=== PATIENT | male | born 1975 | race Caucasian/White ===

== ENCOUNTER 2020-11-04 08:24 | Outpatient (REF) | payer OTHER, SELFPAY | END 2020-11-04 08:25 | disposition home or self-care (01) | LOC: HO.HMGCLDS 08:24 | PROVIDERS: Visit Provider Internal Medicine | DX: Z20.822 Contact with and (suspected) exposure to COVID-19 (principal) | CPT/HCPCS: C9803; U0003; U0005 ==

== ENCOUNTER 2022-12-26 07:17 | Outpatient (REF) | payer OTHER, SELFPAY ==
[2022-12-26 11:11] LABS: MANUAL DIFF FLAG NO
[2022-12-26 11:20] LABS: Basophils Percent Auto 0.4 % (0-2); Eosinophils Absolute Auto 0.1 X10*3/uL (0.0-0.4); Eosinophils Percent Auto 1.2 % (0-4); Hematocrit 45.5 % (42.0-52.0); Hemoglobin 15.3 g/dl (14.0-18.0); Imm Gran Abs Auto 0.02 X10*3/uL (0.00-0.03); Imm Gran Pct Auto 0.4 % (0.0-0.4); Lymphocytes Absolute Auto 1.3 X10*3/uL (1.2-4.9); Lymphocytes Percent Auto 25.6 % (20-40); Mean Corpuscular HGB Conc 33.6 g/dl (31.0-36.0); Mean Corpuscular Hemoglobin 31.8 pg (27.0-33.0); Mean Corpuscular Volume 94.6 fL (80.0-98.0); Mean Platelet Volume 10.2 fL (9.4-12.4); Monocytes Absolute Auto 0.5 X10*3/uL (0.1-1.2); Neutrophils Absolute Auto 3.1 x10*3/uL (2.0-8.3); Neutrophils Percent Auto 62.4 % (45-73); Platelet Count 204 X10*3/uL (160-400); Red Blood Count 4.81 X10*6/uL (4.60-5.80)
[2022-12-26 11:23] LABS: Appearance Urine Clear; Color Urine Yellow; Glucose Urine UA Negative (Negative); Leukocyte Esterase Urine Negative (Negative); Nitrite Urine Negative (Negative); PH 6.5 (5.0-9.0); Specific Gravity - Urine 1.025 (1.005-1.025); Urine Blood Negative (Negative); Urine Ketones Negative (Negative); Urine Protein Negative (Neg-Trace)
[2022-12-26 11:48] LABS: Alanine Aminotransferase 16 U/L (0-40); Albumin Level 4.2 g/dL (3.5-5.0); Alkaline Phosphatase 74 U/L (39-117); Anion Gap 12 (12-20); Aspartate Amino Transferase 24 U/L (5-37); Bilirubin Total 1.2 mg/dL (0.0-1.0); Blood Urea Nitrogen 20 mg/dL (9-16); Calcium 9.5 mg/dL (8.4-10.2); Carbon Dioxide 25 mmol/L (22-29); Chloride 108 mmol/L (96-108); Cholesterol 175 mg/dL; Estimated Glomerular Filt Rate > 60; Glucose Fasting 87 mg/dL (60-99); HDL Cholesterol 46 mg/dL; LDL Cholesterol Calculated 115 mg/dl; Potassium 4.4 mmol/L (3.3-5.1); Sodium 141 mmol/L (135-145); Total Protein 6.8 g/dL (6.5-8.0); Triglycerides 70 mg/dL
[2022-12-26 12:06] LABS: Prostate Specific Antigen Scr 0.39 ng/mL (<0.05-4.0); TSH reflex Free T4 1.81 uIU/mL (0.32-4.0)
== END 2022-12-26 07:18 | disposition home or self-care (01) ==
LOC: HO.HMGCLDS 07:17
PROVIDERS: PCP Nurse Practitioner Family; Visit Provider Nurse Practitioner Family
DX: Z00.00 Encounter for general adult medical examination without abnormal findings (principal); Z12.5 Encounter for screening for malignant neoplasm of prostate
CPT/HCPCS: 36415; 80053; 80061; 81003; 84153; 84443; 85025

== ENCOUNTER → 2023-01-15 14:53 | Outpatient (BNVA) | payer OTHER, SELFPAY | PROVIDERS: PCP Nurse Practitioner Family; Visit Provider Nurse Practitioner | DX: Z01.818 Encounter for other preprocedural examination (principal) | CPT/HCPCS: 99202 ==

== ENCOUNTER 2023-12-23 14:52 | Outpatient (AMB) | payer OTHER, SELFPAY ==
--- NOTE | 2023-12-23 14:55 | A.OFFPC_ITS ---
Vital Signs 12/23/23 14:58 Height 5 ft 10 in Weight 181 lb BMI 26.0 BP 128/82 Blood Pressure Location Lt brachial Position Sitting Pulse 61 Pulse Source Pulse Oximeter Pulse Oximetry (%) 98 Oxygen Delivery Method Room Air Intake Visit Reasons: Physical exam Intake Note: pt is here today for annual PE. Scheduled for colonoscopy 01/13/24. Has surgeries coming up for glaucoma. Allergies No Known Allergies Allergy (Verified 12/23/23 15:21) Medication List - Last Reconciled 12/23/23 by FELICIA Bryan peg 3350-electrolytes 236-22.74-6.74 -5.86 gram (Golytely) 240 mL PO Q10M 1 day Tobacco use date assessed: 12/23/23 Dental Screening Dental Screen Date: 12/23/23 Did you have a dental visit in the last 12 months?: Yes Did you have a dental problem in the last 6 months where you did not have access to dental care?: No Was dental information given to patient?: Patient has dentist HPI HPI Comments History of Present Illness Details Patient is a 48-year-old male in for physical exam 1 meeting for the 1st time. Will draw full panel fasting labs including PSA. Patient has upcoming appointment for colonoscopy. Patient will opt for TD booster at local pharmacy. Patient will fill out healthcare proxy form at appointment today. [facility] Surgical History No pertinent past surgical history Family History Mother Ovarian cancer Breast cancer Father Prostate cancer Social History Housing: House Patient Tobacco Use Status: Former Tobacco user e-Cigarette/Vaping Use: Never Used service: Yes Current occupational status: employed Current occupational exposures/hazards: Yes Cognitive needs: No Hearing needs: No Vision needs: No Questionnaire PHQ-9 Over the last 2 weeks, how often have you been bothered by any of the following problems? 1. Little interest or pleasure in doing things: not at all 2. Feeling down, depressed, or hopeless: not at all 3. Trouble falling or staying asleep, or sleeping too much: not at all 4. Feeling tired or having little energy: not at all 5. Poor appetite or overeating: not at all 6. Feeling bad about yourself - or that you are a failure or have let yourself or your family down: not at all 7. Trouble concentrating on things, such as reading the newspaper or watching television: not at all 8. Moving or speaking so slowly that other people could have noticed. Or the opposite - being so fidgety or restless that you have been moving around a lot more than usual: not at all 9. Thoughts that you would be better off or of hurting yourself in some way: not at all Total score: 0 Depression Screening Interpretation: Negative Depression Screening Done: Yes 72732 - PHQ-9 Billing: Yes Source: Developed by Drs. Cayetano Tejada, Bre Browning, Reynaldo Saavedra and colleagues, with an educational anant from [employer]. Thrive Questionnaire Date Thrive assessed: 12/23/23 I am a: Patient What is your living situation today?: I have a steady place to live Within the past 12 months, did the food you bought not last and you didn't have the money to get more?: Never true Within the past 12 months, did you worry whether your food would run out before you got money to buy more?: Never true Do you have trouble paying for medicines?: No Do you have trouble getting transportation to medical appointments?: No Do you have trouble paying your heating and electricity bill?: No Do you have trouble taking care of your child, family member or friend?: No Do you have trouble with day-to-day activities such as bathing, preparing meals, shopping, managing finances, etc.?: No Are you currently unemployed and looking for a job?: No Are you interested in more education?: No Please select the resources that you would like help with: None Currently or been in a relationship where the following occur: no concerns reported THRIVE Score: 0 AUDIT C Alcohol Use Questionnaire (AUDIT-C) 1. How often do you have a drink containing alcohol?: Never 3. How often do you have six or more drinks on one occasion?: Never Total Score: 0 Score Reviewed/Action Taken: Yes DEON-7 AMB Questionnaire DEON-7 Feeling nervous, anxious, or on edge: 0 = Not at all Not being able to stop or control worryin = Not at all Worrying too much about different things: 0 = Not at all Trouble relaxin = Not at all Being so restless that it is hard to sit still: 0 = Not at all Becoming easily annoyed or irritable: 0 = Not at all Feeling afraid as if something awful might happen: 0 = Not at all Total DEON-7 score (0-4 normal; 5-9 mild; 10-14 moderate; 15-21 severe): 0 Source: Developed by Drs. Cayetano Tejada, Bre Browning, Reynaldo Saavedra and colleagues, with an educational anant from [employer]. DEON-7 Assessment Billing DEON-7 Assessment Tool: DEON-7 Assessment 80131 Review of Systems Const All systems reviewed & are unremarkable except as noted in HPI and below Physical exam (Primary Care) Vital Signs: Last Vital Signs Pulse 61 12/23/23 14:58 BP 128/82 12/23/23 14:58 Pulse Ox 98 12/23/23 14:58 Oxygen Delivery Method Room Air 12/23/23 14:58 Care Plan Goal for BP management: Blood pressure is controlled. BMI result Body Mass Index 26.0 Tobacco/Smoking Status: Tobacco use Status Tobacco use date assessed 12/23/23 12/23/23 15:06 Patient Tobacco Use Status Former Tobacco user 12/23/23 14:55 e-Cigarette/Vaping Use Never Used 12/23/23 14:55 PHQ-9: PHQ-9 Score PHQ-9: Total score 0 12/23/23 15:06 Depression Screening Interpretation: Negative Thrive Assessment: Date of Thrive Assessment Date Thrive assessed 12/23/23 12/23/23 15:06 Currently or been in a relationship where the following occur: no concerns reported Const Other: Appearance: Alert.? Oriented X3.? No acute distress.? Head: Normocephalic, atraumatic, no step-offs or deformities Eyes: Pupils equal, round and reactive to light.? ENT: Pharynx normal.? Neck: Normal inspection.? Neck supple.? CVS: Normal heart rate and rhythm.? Pulses normal.? Respiratory: No respiratory distress.? Breath sounds normal.? Abdomen: Soft and nontender.? Skin: Skin warm and dry.? Normal skin color.? Normal skin turgor.? Extremities: No lower extremity edema.? No calf ttp. 5/5 strength to bilateral upper and lower extremities Back: No midline tenderness, no C-spine tenderness, full range of motion, no CVA tenderness bilaterally Neuro: Oriented X 3.? No motor deficit.? No sensory deficit. CN 2-12 intact Assessment and Plan Assessment & Plan (1) Physical exam: Comment: Will draw fasting labs. Has upcoming colonoscopy. Will get TD booster at local pharmacy. Code(s): Z00.00 - Encounter for general adult medical examination without abnormal findings (2) Glaucoma: Comment: Patient has upcoming appointment with Ophthalmology. Code(s): H40.9 - Unspecified glaucoma Qualifiers: Glaucoma type: unspecified Laterality: bilateral Qualified Code(s): H40.9 - Unspecified glaucoma Plan: draw labs Plan Follow up in 8 months. Orders: Orders Complete Blood Count Auto Diff Today Z13.0 - Encounter for screening for diseases of the blood and blood-forming organs and certain disorders involving the immune mechanism Comprehensive Met. Panel Today Z91.89 - Other specified personal risk factors, not elsewhere classified PSA,Total (Free>4and<10) Today Z12.5 - Encounter for screening for malignant neoplasm of prostate Vitamin D 25-OH (D2 and D3) Today Z13.21 - Encounter for screening for nutritional disorder Vitamin B6 Today Z13.21 - Encounter for screening for nutritional disorder Vitamin B12 Today Z13.21 - Encounter for screening for nutritional disorder UA CC w/rflx Micro + Cult Today Z13.89 - Encounter for screening for other disorder Lipid Panel Today Z13.220 - Encounter for screening for lipoid disorders TSH reflex Free T4 Today Z13.29 - Encounter for screening for other suspected endocrine disorder Coding Level of Care Code Est Pt Prev Care 40-64y(65113) Diagnoses Physical exam Z00.00 Glaucoma of both eyes, unspecified glaucoma type H40.9 Glaucoma type: unspecified Laterality: bilateral Additional Codes DEON-7 Assessment Billing - DEON-7 Assessment Tool: DEON-7 Assessment 41750 ([id number]) Time Spent (min) 26
[2023-12-23 14:58] VITALS: BP 128/82; PULSE 61; O2SAT 98; BMI 26.0
== END 2023-12-23 15:37 | disposition home or self-care (01) ==
PROVIDERS: PCP Internal Medicine; Visit Provider Nurse Practitioner Primary Care
DX: Z00.00 Encounter for general adult medical examination without abnormal findings (principal); H40.9 Unspecified glaucoma
CPT/HCPCS: 99396

== ENCOUNTER 2023-12-24 07:02 | Outpatient (REF) | payer OTHER, SELFPAY ==
[2023-12-24 10:33] LABS: Appearance Urine Clear; Color Urine Yellow; Glucose Urine UA Negative (Negative); Leukocyte Esterase Urine Negative (Negative); Nitrite Urine Negative (Negative); PH 6.5 (5.0-9.0); Specific Gravity - Urine 1.025 (1.005-1.025); Urine Blood Negative (Negative); Urine Ketones Negative (Negative); Urine Protein Negative (Neg-Trace)
[2023-12-24 10:34] LABS: MANUAL DIFF FLAG NO
[2023-12-24 10:49] LABS: Basophils Percent Auto 0.5 % (0-2); Eosinophils Absolute Auto 0.1 X10*3/uL (0.0-0.4); Eosinophils Percent Auto 1.1 % (0-4); Hematocrit 45.3 % (42.0-52.0); Hemoglobin 15.8 g/dl (14.0-18.0); Imm Gran Abs Auto 0.01 X10*3/uL (0.00-0.03); Imm Gran Pct Auto 0.2 % (0.0-0.4); Lymphocytes Absolute Auto 1.2 X10*3/uL (1.2-4.9); Lymphocytes Percent Auto 26.6 % (20-40); Mean Corpuscular HGB Conc 34.9 g/dl (31.0-36.0); Mean Corpuscular Hemoglobin 32.4 pg (27.0-33.0); Monocytes Absolute Auto 0.4 X10*3/uL (0.1-1.2); Monocytes Percent Auto 8.9 % (2-11); Neutrophils Absolute Auto 2.8 x10*3/uL (2.0-8.3); Neutrophils Percent Auto 62.7 % (45-73); Platelet Count 196 X10*3/uL (160-400); Red Blood Count 4.87 X10*6/uL (4.60-5.80); Red Cell Distribution Width 12.1 % (11.0-16.0); White Blood Count 4.4 X10*3/uL (4.8-10.8)
[2023-12-24 11:20] LABS: PSA,Total (Free>4and<10) 0.63 ng/mL (0.00-4.00)
[2023-12-24 11:32] LABS: Alanine Aminotransferase 13 U/L (0-40); Albumin Level 4.2 g/dL (3.5-5.0); Alkaline Phosphatase 68 U/L (39-117); Anion Gap 10 (12-20); Aspartate Amino Transferase 21 U/L (5-37); Bilirubin Total 0.8 mg/dL (0.0-1.0); Blood Urea Nitrogen 21 mg/dL (9-16); Calcium 9.1 mg/dL (8.4-10.2); Carbon Dioxide 25 mmol/L (22-29); Chloride 108 mmol/L (96-108); Cholesterol 200 mg/dL (<200); Estimated Glomerular Filt Rate > 60; Glucose Random 92 mg/dL (60-115); HDL Cholesterol 41 mg/dL (>40); LDL Cholesterol Calculated 132 mg/dL (<100); Potassium 4.4 mmol/L (3.3-5.1); Sodium 139 mmol/L (135-145); Total Protein 6.9 g/dL (6.5-8.0); Triglycerides 138 mg/dL (<150)
[2023-12-24 11:51] LABS: Vitamin B12 319 pg/mL (200-900)
[2023-12-29 16:28] LABS: Vitamin B6 8.7 ng/mL (2.1-21.7)
[2023-12-30 10:14] LABS: Vitamin D 25-OH, D2 <4 ng/mL; Vitamin D 25-OH, D3 23 ng/mL; Vitamin D 25-OH, Total 23 ng/mL (30-100)
== END 2023-12-24 07:03 | disposition home or self-care (01) ==
LOC: HO.HMGCLDS 07:02
PROVIDERS: PCP Nurse Practitioner Family; Visit Provider Nurse Practitioner Primary Care
DX: Z12.5 Encounter for screening for malignant neoplasm of prostate (principal); Z13.6 Encounter for screening for cardiovascular disorders; Z13.0 Encounter for screening for diseases of the blood and blood-forming organs and certain disorders involving the immune mechanism; Z13.21 Encounter for screening for nutritional disorder; Z13.29 Encounter for screening for other suspected endocrine disorder; Z13.89 Encounter for screening for other disorder; Z13.220 Encounter for screening for lipoid disorders; Z91.89 Other specified personal risk factors, not elsewhere classified
CPT/HCPCS: 36415; 80053; 80061; 81003; 82306; 82607; 84153; 84207; 84443; 85025

== ENCOUNTER 2024-01-13 12:50 | Day surgery (SDC) | payer OTHER, SELFPAY ==
[2023-08-22 10:54] VITALS: BMI 24.8
--- NOTE | 2024-01-09 13:38 | HO.ANESPROP2 ---
HPI - Anesthesia Eval Consult details Narrative: 48yo M for Colonoscopy PMFSH Active Problems Active Problems: All Active Problems Glaucoma (Acute) Pre-op examination (Acute) Physical exam (Acute) Screening for colon cancer (Acute) Family History Family History Mother Ovarian cancer Breast cancer Father Prostate cancer Surgical History Surgical History No pertinent past surgical history Social History Social History Housing: House Patient Tobacco Use Status: Former Tobacco user e-Cigarette/Vaping Use: Never Used service: Yes Current occupational status: employed Current occupational exposures/hazards: Yes Cognitive needs: No Hearing needs: No Vision needs: No Meds Allergies Allergy/AdvReac Type Severity Reaction Status Date / Time No Known Allergies Allergy Verified 12/23/23 15:21 Exam Height,Weight and Vital Signs: Height 5 ft 10 in Weight 78.471 kg Assessment and Plan Assessment Anesthesia Assessment: Chart Reviewed
[2024-01-13 13:08] VITALS: BP 136/92; PULSE 58; RESP 16; TEMP 36.6; O2SAT 97; BMI 25.9
--- NOTE | 2024-01-13 13:13 | MHC.SHP ---
Pre-Procedural Eval Section A - 24 Hr Update-Section A only Date of Service: 01/13/24 The patient is an INPATIENT: No The patient has been examined within 24 hours of the surgical procedure. The History & Physical has been completed within 30 days and I have reviewed it.: No Section B - Complete if H&P > 30 days Chief Complaint: Colon cancer screening Relevant Family History (Specify if Yes): No Relevant Social History: Tobacco Use (former smoker) Present Medications: see Short Stay Collaborative assessment Medical History: No relevant PMH History of Previous Operations: Relevant previous surgery/procedure and date(s) ([place] teeth removal - with gas) Allergies: Allergies Allergy/AdvReac Type Severity Reaction Status Date / Time No Known Allergies Allergy Verified 12/23/23 15:21 Review of Systems Sugical H&P ROS: Negative: Constitution, Cardiovascular, Respiratory and Gastrointestinal Exam Surgical H&P Exam: Normal: Heart, Normal: Lungs, Normal: Extremities and Normal: Abdomen Plan Diagnosis/Plan: Unchanged I have reviewed the history and physical and performed a pertinent physical examination on my patient. No changes have occurred unless specified. Time Spent With Patient Time: Total time managing care of this patient today ____ minutes.
[2024-01-13] MEDS: Lactated Ringers 1,000 ML 100 ML IVCONT (13:26)
--- NOTE | 2024-01-13 13:32 | HO.ANESPROP2 ---
PMF Active Problems Active Problems: All Active Problems Glaucoma (Acute) Pre-op examination (Acute) Physical exam (Acute) Screening for colon cancer (Acute) Past Medical History Functional capacity: independent ambulation Family History Family History Mother Ovarian cancer Breast cancer Father Prostate cancer Family history of problems with anesthesia: No Surgical History Surgical History No pertinent past surgical history History of Problems with Anesthesia: No Social History Social History Housing: House Patient Tobacco Use Status: Former Tobacco user e-Cigarette/Vaping Use: Never Used Use of substances other than those prescribed or required for medical reasons: No Are you DNR?: No Advance Directives: No Advance Directives Information Provided: Yes service: Yes Current occupational status: employed Current occupational exposures/hazards: Yes Cognitive needs: No Hearing needs: No Vision needs: No Meds Allergies Allergy/AdvReac Type Severity Reaction Status Date / Time No Known Allergies Allergy Verified 12/23/23 15:21 Active Medications: Current Medications Lactated Ringer's (Lr) 1,000 mls @ 100 mls/hr IVCONT .Q10H PETR Last Admin: 01/13/24 13:26 Dose: 100 mls/hr Exam Height,Weight and Vital Signs: Height 5 ft 10 in Weight 82.01 kg Last Vital Signs Temp 97.8 F 01/13/24 13:08 Pulse 58 01/13/24 13:08 Resp 16 01/13/24 13:08 BP 136/92 H 01/13/24 13:08 Pulse Ox 97 01/13/24 13:08 O2 Del Method Room Air 01/13/24 13:08 Airway Mallampati Class: II TM Dist: >3cm Neck ROM: Full Heart: RRR Lungs: CTA Assessment and Plan Assessment Anesthesia Assessment: Anesthesia Plan Discussed Final Anesthetic Review Family History of Problems with Anesthesia: No History of Problems with Anesthesia: No NPO: Yes ASA Class: II Final Preanesthetic Review: Meds/Allgs Chart Reviewed, Consent Obtained/Reviewed and Anes Risks/Benef Reviewed Patient Risk: Low Procedure Risk: Low Anesthetic Plan Anesthetic Plan: MAC: Disposition: Standard PACU
--- NOTE | 2024-01-13 14:42 | P.OPN-COLO_ITS ---
Colonoscopy Operative Note Operative Note Date of Service: 01/13/24 Narrative: COLONOSCOPY TILL CECUM WITH SNARE POLYPECTOMY, SUBMUCOSAL INJECTION AND HEMOCLIP PLACEMENT Pre-op diagnosis: Colon cancer screening (First colonoscopy). Post-op diagnosis:? Colon polyps, Diverticulosis, hemorrhoids Endoscopist:Khadar Parham MD Anesthesia:?MAC Consent: Indications for the procedure and potential complications of bleeding, perforation, reaction to medications and missed diagnosis were discussed with the patient and informed consent was obtained. Instrument: Olympus CF H 190 L variable stiffness adult colonoscope Monitoring: Vital signs and clinical assessment, intermittent blood pressure monitoring, continuous EKG monitoring, Pulse oximetry and Carbon Dioxide monitoring were done throughout the procedure. Please see anesthesia flowsheet. Colon withdrawl time was 25 minutes. Procedure: The patient was placed in the left lateral decubitis position and pre-procedure medications were administered. After a digital rectal examination of the ano-rectum, the video colonoscope was inserted into the rectum and advanced through the colon to the cecum. The colonoscope was slowly withdrawn in a retrograde panoramic fashion and the colon mucosa was carefully examined including a retroflexed view of the rectum. Findings and interventions are described below. Procedure Difficulty: without difficulty Findings: Terminal Ileum: Not evaluated Cecum: Normal Ascending Colon: A 2.5 x 2 cms flat polyp in the proximal AC at 75 cms. Polyp was raised with 4 cc of Eleview and removed with a stiff hot snare. Polypectomy site was closed with 2 hemoclips and marked with Valeria ink Transverse Colon: Normal Descending Colon: Moderate diverticulosis Sigmoid Colon: A 10-12 mm sessile polyp - removed with a stiff hot snare. Moderate diverticulosis Rectum: A 5-6 mm sessile polyp in the distal rectum - removed with a hot snare Ano-rectum: Small internal hemorrhoids Colon preparation: Excellent after some irrigation. [place] Bowel Preparation Scale Right colon; 3 Transverse colon: 3 Left colon; 3 (0 = Unprepared colon segment with mucosa not seen due to solid stool that cannot be cleared. 1 = Portion of mucosa of the colon segment seen, but other areas of the colon segment not well seen due to staining, residual stool and/or opaque liquid. 2 = Minor amount of residual staining, small fragments of stool and/or opaque liquid, but mucosa of colon segment seen well. 3 = Entire mucosa of colon segment seen well with no residual staining, small fragments of stool or opaque liquid) Impression and Post Procedure Diagnosis: Colonoscopy Findings: Two medium sized and one small polyps were removed A 2.5 x 2 cms flat polyp in the proximal AC at 75 cms. Polyp was raised with 4 cc of Eleview and removed with a stiff hot snare. Polypectomy site was closed with 2 hemoclips and marked with Valeria ink Moderate diverticulosis seen in the left colon Small hemorrhoids on retroflexed exam. Plan: Pt has a FU appointment on 02/04/24 with Yolie Duff NP Repeat Colonoscopy in 2 years if AC polyps is adenomatous to check polypectomy site and 10 year if polyps are hyperplastic. Above findings were reviewed with the patient and relevant handouts were given and the discharge area.
[2024-01-13 14:44] VITALS: BP 114/78; PULSE 57; RESP 16; TEMP 36.1; O2SAT 99
--- NOTE | 2024-01-13 14:51 | HO.POSTANES ---
Post Anesthesia Evaluation Post Anesthesia Evaluation Date of Service: 01/13/24 Vital Signs: Vital Signs Temp Pulse Resp BP Pulse Ox O2 Del Method 01/13/24 14:44 97 F 57 16 114/78 99 Room Air 01/13/24 13:08 97.8 F 58 16 136/92 H 97 Room Air Anesthesia: Monitored Mental Status: Awake Pain Control: Satisfactory Nausea/Vomiting: None Hydration: Adequate Anesthesia-Related Issues: No Anes. Related Issues
[2024-01-13 14:57] VITALS: BP 117/72; PULSE 48; RESP 16; TEMP 36.1; O2SAT 100
== END 2024-01-13 15:52 | disposition home or self-care (01) ==
PROVIDERS: PCP Internal Medicine; Visit Provider Internal Medicine Gastroenterology
PROC: 0DJD8ZZ Inspection of Lower Intestinal Tract, Via Natural or Artificial Opening Endoscopic (ICD-10-PCS; CPT 45378; principal; 2024-01-13 14:00)
DX: Z12.11 Encounter for screening for malignant neoplasm of colon (principal); D12.2 Benign neoplasm of ascending colon; D12.8 Benign neoplasm of rectum; K63.5 Polyp of colon; K57.30 Diverticulosis of large intestine without perforation or abscess without bleeding; K64.8 Other hemorrhoids; Z87.891 Personal history of nicotine dependence
CPT/HCPCS: 45385; 45381; 88305; J2704

== ENCOUNTER → 2024-01-13 12:50 | Outpatient (BNV) | payer OTHER, SELFPAY | PROVIDERS: PCP Internal Medicine; Visit Provider Internal Medicine Gastroenterology | DX: Z12.11 Encounter for screening for malignant neoplasm of colon (principal); Z86.010 Personal history of colon polyps; D12.8 Benign neoplasm of rectum; K63.5 Polyp of colon | CPT/HCPCS: 45381; 45385 ==

== ENCOUNTER 2024-05-25 13:12 | Outpatient (REF) | payer OTHER, SELFPAY ==
--- NOTE | ~2024-05-25 | XR_ITS ---
EXAMINATION: XR SHOULDER, LEFT CLINICAL INFORMATION: Left shoulder pain. COMPARISON: None available. TECHNIQUE: AP, Grashey, and scapular Y views of the left shoulder. FINDINGS: No acute fracture or dislocation. Mild joint space narrowing with small marginal osteophytes at the acromioclavicular and glenohumeral joints. No osseous erosion. No abnormal soft tissue calcification. XR/XR shoulder LT min 2V IMPRESSION: Mild acromioclavicular and glenohumeral osteoarthritis. Electronically signed by: Ellis Mcmahon MD 05/25/2024 04:01 PM LOREN SALINAS
== END 2024-05-25 13:13 | disposition home or self-care (01) ==
LOC: HO.HMGCX 13:12
PROVIDERS: PCP Nurse Practitioner Family; Visit Provider Physician Assistant
DX: M25.512 Pain in left shoulder (principal)
CPT/HCPCS: 73030; 99212

== ENCOUNTER 2024-05-25 13:12 | Outpatient (AMB) | payer OTHER, SELFPAY ==
[2024-05-25 13:20] VITALS: BP 120/74; PULSE 72; O2SAT 98; BMI 25.8
--- NOTE | 2024-05-25 13:20 | MHC.OFFWIV ---
Intake Vital Signs 05/25/24 13:20 Height 5 ft 10 in Weight 180 lb BMI 25.8 BP 120/74 Blood Pressure Location Rt brachial Position Sitting Pulse 72 Pulse Source Pulse Oximeter Pulse Oximetry (%) 98 Intake Visit Reasons: EP LT shoulder pain Intake Note: pt is here for left shoulder pain, denies injury but ongoing for 1 week Patient Tobacco Use Status: Former Tobacco user Allergies No Known Allergies Allergy (Verified 05/25/24 13:21) Do you need a note to return to daycare/school/sports/work: No HPI HPI Comments History of Present Illness Details Patient is a 49-year-old male complaining of left shoulder pain for the past week. He denies any injury to the left shoulder. He tells me he goes to the gym but does not lift heavy he has not tried any new exercises at the gym or done anything different from his normal routine. He has taken the last week off of the gym to try to rest it but it has not gotten better. He has been taking 400 mg of ibuprofen every 4 hours with no relief in his symptoms. He tells me it is painful in the front of his shoulder and around to the side of his shoulder and it feels heavy but he denies any feelings of muscle spasm or pain in his neck. He describes the pain as a sharp shooting pain when he moves a certain way. [facility] Surgical History No pertinent past surgical history Family History Mother Ovarian cancer Breast cancer Father Prostate cancer Social History Housing: House Patient Tobacco Use Status: Former Tobacco user e-Cigarette/Vaping Use: Never Used service: Yes Current occupational status: employed Current occupational exposures/hazards: Yes Cognitive needs: No Hearing needs: No Vision needs: No Review of Systems Const All systems reviewed & are unremarkable except as noted in HPI and below Physical Exam Vital Signs: Last Vital Signs Pulse 72 05/25/24 13:20 BP 120/74 05/25/24 13:20 Pulse Ox 98 05/25/24 13:20 BMI result Body Mass Index 25.8 Const General: cooperative, healthy appearing, comfortable and no acute distress Orientation/consciousness: patient oriented x3 Limitations: no limitations HEENT Head: Yes normal to inspection Resp Effort & Inspection: normal respiratory effort and able to speak in complete sentences Neuro General: patient oriented x3 Extrem Left upper extremity: shoulder/upper arm Details: inspection abnormal, tenderness Location: over the biceps tendon (insertion point) and abnormal ROM Details: pain with active ROM Details: in ABduction; but not in ADduction, but not in extension, but not in flexion, but not in internal rotation and external rotation-; no swelling, no lacerations, no ecchymosis, no foreign bodies, no penetrating wound, no deformity and no unsual warmth Assessment & Plan Assessment & Plan (1) Left shoulder pain: Code(s): M25.512 - Pain in left shoulder Qualifiers: Chronicity: acute Qualified Code(s): M25.512 - Pain in left shoulder Plan: We will treat with meloxicam, likely proxmial biceps tendonitis. Possible muscle spasm as well so I sent a few muscle relaxers. Will get x-ray and send ortho referral. Recommended patient cancel the appointment with ortho if his pain improves. Plan See above Orders: Orders XR shoulder LT min 2V Today M25.512 - Pain in left shoulder Referrals Orthopedics Referral M25.512 - Pain in left shoulder Medications: New meloxicam 15 mg PO DAILY 14 tabs 0RF cyclobenzaprine 5 mg PO Q8H PRN 10 tabs 0RF Muscle Spasm Coding Level of Care Code Est Pt Level 4 (01582) Diagnoses Acute pain of left shoulder M25.512 Chronicity: acute
== END 2024-05-25 14:07 | disposition home or self-care (01) ==
PROVIDERS: PCP Internal Medicine; Visit Provider Physician Assistant
DX: M25.512 Pain in left shoulder (principal)

== ENCOUNTER 2024-06-22 09:30 | Outpatient (AMB) | payer OTHER, SELFPAY ==
--- NOTE | 2024-06-22 09:32 | MHC.OFFVIS ---
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 Patient was seen at [facility] [place] [place] on 05/25/24 for ongoing pain for a week. He states having ongoing pain and popping for about a month. Denies injury. Patient states he was given a topical cream which gave him mild relief and his pain came back after a while. His pain is worse at night when laying down. 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 He has not had any shoulder injury in the past. He reports he was seen at walk-in clinic on 05/25/24 due to ongoing pain for a week. He currently states he has popping as well as pain in his left shoulder that is aggravated at night with laying down. He also experiences soreness in his shoulder after working out at gym. He was given a topical cream which provided him transient relief. 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 Current occupational exposures/hazards: Yes Cognitive needs: No Hearing needs: No Vision needs: No Review of Systems Const All systems reviewed & are unremarkable except as noted in HPI and below Physical Exam Const General: cooperative, healthy appearing, comfortable, no acute distress, well developed and alert Orientation/consciousness: patient oriented x3 HEENT Head: Yes normal to inspection, Yes normocephalic and Yes atraumatic Eyes General: appearance normal, both eyes and all related structures Resp Effort & Inspection: normal respiratory effort and able to speak in complete sentences Cardio Rate: regular rate Peripheral pulses: Peripheral pulses 2+ throughout GI Palpation (GI): Soft to palpation Skin Lesions: no lesions Rashes: no rashes Neuro General: patient oriented x3 Extrem Other: Left shoulder: Normal to inspection. Tenderness over the bicipital groove and along the deltoid region of the shoulder. Forward flexion to 175, external rotation to 90, internal rotation to S1. 5/5 RTC strength. Positive Roca and O?Briens. NVI. Results Reviewed Results Reviewed: XR shoulder LT min 2V IMPRESSION: Mild acromioclavicular and glenohumeral osteoarthritis. Assessment & Plan Assessment & Plan (1) Left shoulder tendonitis: Code(s): M77.8 - Other enthesopathies, not elsewhere classified Category: Medical Plan We discussed options which include PT, NSAIDs and injections. The patient will defer on the injection today and proceed with PT and NSAIDs. If symptoms persist, she will contact me for an injection, otherwise, PRN. Orders: Orders PT Evaluation and Treatment Today M77.8 - Other enthesopathies, not elsewhere classified Patient Instructions: Scribed for Karmen Waller PA-C, by Ace Mooney biomedical repair technician, on 06/22/2024 at 9:45 AM EST.? I, Karmen Waller PA-C, have personally reviewed and agree with the information entered by the scribe. Coding Level of Care Code New Pt Level 3 (54781) Complex EM visit Add On G2211 Diagnoses Left shoulder tendonitis M77.8
== END 2024-06-22 10:09 | disposition home or self-care (01) ==
PROVIDERS: PCP Nurse Practitioner Family; Visit Provider Physician Assistant
DX: M77.8 Other enthesopathies, not elsewhere classified (principal)
CPT/HCPCS: 99203

== ENCOUNTER → 2024-06-22 09:30 | Outpatient (BNVA) | payer OTHER, SELFPAY | PROVIDERS: PCP Nurse Practitioner Family; Visit Provider Physician Assistant | DX: M77.8 Other enthesopathies, not elsewhere classified (principal); M25.512 Pain in left shoulder | CPT/HCPCS: 99202 ==

== ENCOUNTER 2025-01-21 09:03 | Outpatient (AMB) | payer OTHER, SELFPAY ==
[2025-01-21 09:11] VITALS: BP 120/78; PULSE 55; O2SAT 98; BMI 26.0
--- NOTE | 2025-01-21 09:11 | A.OFFPC_ITS ---
Vital Signs 01/21/25 09:11 Height 5 ft 10 in Weight 181 lb BMI 26.0 BP 120/78 Blood Pressure Location Rt brachial Position Sitting Pulse 55 Pulse Source Pulse Oximeter Pulse Oximetry (%) 98 Oxygen Delivery Method Room Air Intake Visit Reasons: PE Development Analyst Required: No Accompanied by: Self / Same As Patient Allergies No Known Allergies Allergy (Verified 01/21/25 09:11) Tobacco use date assessed: 01/21/25 Dental Screening Dental Screen Date: 01/21/25 Did you have a dental visit in the last 12 months?: Yes Did you have a dental problem in the last 6 months where you did not have access to dental care?: No Was dental information given to patient?: Patient has dentist HPI PE HPI Details History of Present Illness The patient is a 49-year-old male presenting for a physical exam and preventative care measures. He is an avid runner, participating in events up to 100 miles, and reports doing well without any symptoms such as chest pain, dyspnea, abdominal pain, or gastrointestinal issues. He denies any suicidal or homicidal ideation. The patient has a history of smoking, having started at age 15 and continued for over 20 years at a minimum of one pack per day before quitting. Health Maintenance - Low dose CT scan for lung cancer scree ariane due to smoking history - Prostate-specific antigen (PSA) test f or prostate cancer screening - Colon cancer screening is up-to-date, with a repeat scheduled for next year Social History - Exercise: Avid runner, participates in events up to 100 miles - Tobacco use: Former smoker, started at age 15, smoked for over 20 years, quit thereafter Review of Systems - Cardiovascular: Denies chest pain - Respiratory: Denies dyspnea - Gastrointestinal: Denies abdominal noel n, blood in stool, constipation, diarrhea - Psychiatric: Denies suicidal ideation, homicidal ideation - Genitourinary: Denies urinary issues Physical Exam General: Cooperative, healthy appearing, comfortable, no acute distress and well developed Orientation: Patient oriented x3 Limitations: No limitations Head: Normal to inspection Ears: Hearing grossly normal bilaterally Nose: Normal external nose present Face and sinus: Normal facial exam Eyes: Appearance normal, both eyes and all related structures Neck: Normal visual inspection and Yes full ROM Respiratory: Normal respiratory effort and able to speak in complete sentences. Clear to auscultation bilaterally Cardiovascular: jackelyn. Normal S1 and S2 GI: Normal to inspection. Soft to palpation and nontender, small umbilical hernia : Testicles without masses/lesions and no hernias appreciated Skin: No rashes or lesions noted Neuro: Patient oriented x3 Extremities: Normal to inspection Results Plan The patient will be referred to a low dose CT scan program for lung cancer screening due to his significant smoking history. A prostate-specific antigen PSA test will be conducted to screen for prostate cancer. His colon cancer screening is current, with a follow-up scheduled for next year. Discussion Notes I discussed with the patient the importance of lung cancer screening given his past smoking history and recommended a low dose CT scan. We also talked about the need for a PSA test to monitor prostate health. I confirmed that his colon cancer screening is up-to-date and advised a repeat next year. Patient Instructions - Schedule a low dose CT scan for lung c ancer screening. - Complete a PSA test as part of prostat e health monitoring. - Follow up with colon cancer screening next year. 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 1. Little interest or pleasure in doing things: not at all 2. Feeling down, depressed, or hopeless: not at all 3. Trouble falling or staying asleep, or sleeping too much: not at all 4. Feeling tired or having little energy: not at all 5. Poor appetite or overeating: not at all 6. Feeling bad about yourself - or that you are a failure or have let yourself or your family down: not at all 7. Trouble concentrating on things, such as reading the newspaper or watching television: not at all 8. Moving or speaking so slowly that other people could have noticed. Or the opposite - being so fidgety or restless that you have been moving around a lot more than usual: not at all 9. Thoughts that you would be better off or of hurting yourself in some way: not at all Total score: 0 Depression Screening Interpretation: Negative Depression Screening Done: Yes 28377 - PHQ-9 Billing: Yes Source: Developed by Drs. Cayetano Tejada, Bre Browning, Reynaldo Saavedra and colleagues, with an educational anant from [employer]. Thrive Questionnaire Date Thrive assessed: 01/21/25 I am a: Patient What is your living situation today?: I have a steady place to live Within the past 12 months, did the food you bought not last and you didn't have the money to get more?: Never true Within the past 12 months, did you worry whether your food would run out before you got money to buy more?: Never true Do you have trouble paying for medicines?: No Do you have trouble getting transportation to medical appointments?: No Do you have trouble paying your heating and electricity bill?: No Do you have trouble taking care of your child, family member or friend?: No Do you have trouble with day-to-day activities such as bathing, preparing meals, shopping, managing finances, etc.?: No Are you currently unemployed and looking for a job?: No Are you interested in more education?: No Please select the resources that you would like help with: None Currently or been in a relationship where the following occur: No concerns reported THRIVE Score: 0 AUDIT C Alcohol Use Questionnaire (AUDIT-C) 1. How often do you have a drink containing alcohol?: Never 3. How often do you have six or more drinks on one occasion?: Never Total Score: 0 Score Reviewed/Action Taken: Yes DEON-7 AMB Questionnaire DEON-7 Date DEON - 7 assessed: 01/21/25 Feeling nervous, anxious, or on edge: 0 = Not at all Not being able to stop or control worryin = Not at all Worrying too much about different things: 0 = Not at all Trouble relaxin = Not at all Being so restless that it is hard to sit still: 0 = Not at all Becoming easily annoyed or irritable: 0 = Not at all Feeling afraid as if something awful might happen: 0 = Not at all Total DEON-7 score (0-4 normal; 5-9 mild; 10-14 moderate; 15-21 severe): 0 Source: Developed by Drs. Cayetano Tejada, Bre Browning, Reynaldo Saavedra and colleagues, with an educational anant from [employer]. DEON-7 Assessment Billing DEON-7 Assessment Tool: DEON-7 Assessment 99617 Physical exam (Primary Care) Vital Signs: Last Vital Signs Pulse 55 01/21/25 09:11 BP 120/78 01/21/25 09:11 Pulse Ox 98 01/21/25 09:11 Oxygen Delivery Method Room Air 01/21/25 09:11 BMI result Body Mass Index 26.0 Tobacco/Smoking Status: Tobacco use Status Tobacco use date assessed 01/21/25 01/21/25 09:14 Patient Tobacco Use Status Former Tobacco user 01/21/25 09:14 e-Cigarette/Vaping Use Never Used 01/21/25 09:14 PHQ-9: PHQ-9 Score PHQ-9: Total score 0 01/21/25 09:14 Depression Screening Interpretation: Negative Thrive Assessment: Date of Thrive Assessment Date Thrive assessed 01/21/25 01/21/25 09:14 Currently or been in a relationship where the following occur: No concerns reported Coding Level of Care Code Est Pt Prev Care 40-64y(48042) Diagnoses Physical exam Z00.00 Tick bite W57.XXXA Screening PSA (prostate specific antigen) Z12.5 Additional Codes DEON-7 Assessment Billing - DEON-7 Assessment Tool: DEON-7 Assessment 72195 ([id number]) PHQ-9 - 83992 - PHQ-9 Billing: Yes ([id number]) Assessment & Plan Assessment & Plan (1) Physical exam: Code(s): Z00.00 - Encounter for general adult medical examination without abnormal findings Category: Medical (2) Tick bite: Code(s): W57.XXXA - Bitten or stung by nonvenomous insect and other nonvenomous arthropods, initial encounter Category: Medical (3) Screening PSA (prostate specific antigen): Code(s): Z12.5 - Encounter for screening for malignant neoplasm of prostate Category: Medical Plan . Orders: Orders Comprehensive Gans. Panel Fast Today Z00.00 - Encounter for general adult medical examination without abnormal findings UA CC w/rflx Micro + Cult Today Z00.00 - Encounter for general adult medical examination without abnormal findings Lipid Panel Today Z00.00 - Encounter for general adult medical examination without abnormal findings Tick-borne Disease Molecular Today W57.XXXA - Bitten or stung by nonvenomous insect and other nonvenomous arthropods, initial encounter Complete Blood Count Auto Diff Today Z00.00 - Encounter for general adult medical examination without abnormal findings TSH reflex Free T4 Today Z00.00 - Encounter for general adult medical examination without abnormal findings Lyme IgG/IgM w/reflex to WB Today W57.XXXA - Bitten or stung by nonvenomous insect and other nonvenomous arthropods, initial encounter Prostate Specific Antigen Scr Today Z12.5 - Encounter for screening for malignant neoplasm of prostate
== END 2025-01-21 09:51 | disposition home or self-care (01) ==
LOC: HO.HMCC 09:04
PROVIDERS: PCP Internal Medicine; Visit Provider Nurse Practitioner Family
DX: Z00.00 Encounter for general adult medical examination without abnormal findings (principal); W57.XXXA Bitten or stung by nonvenomous insect and other nonvenomous arthropods, initial encounter; Z12.5 Encounter for screening for malignant neoplasm of prostate

== ENCOUNTER → 2025-01-21 09:03 | Outpatient (BNVA) | payer OTHER, SELFPAY | PROVIDERS: PCP Internal Medicine; Visit Provider Nurse Practitioner Family | DX: Z00.00 Encounter for general adult medical examination without abnormal findings (principal); T14.8XXA Other injury of unspecified body region, initial encounter; W57.XXXA Bitten or stung by nonvenomous insect and other nonvenomous arthropods, initial encounter; Y93.9 Activity, unspecified; Y92.9 Unspecified place or not applicable; Y99.9 Unspecified external cause status; Z87.891 Personal history of nicotine dependence | CPT/HCPCS: 96127 ==

== ENCOUNTER 2025-01-29 07:03 | Outpatient (REF) | payer OTHER, SELFPAY ==
--- OUTSIDE RECORDS SUMMARY | 2025-01-29 07:04 | XMS_ITS | Continuity of Care Document ---
Author Name [facility] Organization [facility] Care Team Providers Care Chief Green Officer Name Role Phone [facility] Unavailable Unavailable Immunizations Combined list of available immunizations from the Department of Defense and Veterans Affairs facilities. 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 (MOD) complet ed SARS-COV- 2 (COVID-19 ) vaccine, mRNA, spike protein, LNP, preservat bud free, 100 mcg or 50 mcg dose DoD COVID Vaccine Moderna 2020 zzLef t Arm [id number] 207 complet ed COVID Vaccine Moderna 10/30/20 Given Ambulat ory Pharmac y SARS-COV-2 (COVID-19) vaccine, mRNA, spike protein, LNP, preservative free, 100 mcg or 50 mcg dose 1 2020 Unknown, Provider [id number] 207 Moderna [employer], Inc. (MOD) complet ed SARS-COV- 2 (COVID-19 ) vaccine, mRNA, spike protein, LNP, preservat bud free, 100 mcg or 50 mcg dose DoD COVID Vaccine Moderna 2020 zzLef t Arm [id number] 207 complet ed COVID Vaccine Moderna 09/30/20 Given Ambulat ory Pharmac y SARS-COV-2 (COVID-19) vaccine, mRNA, spike protein, LNP, preservative free, 100 mcg or 50 mcg dose 1 2020 Unknown, Provider [id number] 207 Moderna [employer], Inc. (MOD) complet ed SARS-COV- 2 (COVID-19 ) vaccine, mRNA, spike protein, LNP, preservat bud free, 100 mcg or 50 mcg dose DoD influenza, injectable, quadrivalent- pf 2015 150 GlaxoSmithKli ne complet ed influenza , injectabl e, quadrival ent-pf 05/14/16 Given Ambulat ory Pharmac y influenza, seasonal, injectable 2015 [id number] GlaxoSmithKli ne complet ed influenza , seasonal, injectabl e 05/14/16 Given Ambulat ory Pharmac y Influenza, seasonal, injectable 1 2015 Unknown, Provider [id number] 141 [employer] (SKB) complet ed Influenza , seasonal, injectabl e DoD influenza, seasonal, injectable-pf 2014 zzLef t Arm [id number] CSL Behring complet ed influenza , seasonal, injectabl e-pf 05/12/15 Given Ambulat ory Pharmac y Influenza, seasonal, injectable, preservative free 14 2014 Unknown, Provider [id number] 140 [employer] (CSL) complet ed Influenza , seasonal, injectabl e, preservat bud free DoD influenza, seasonal, injectable-pf 2013 140 complet ed influenza , seasonal, injectabl e-pf 05/11/14 Given Ambulat ory Pharmac y Influenza, seasonal, injectable, preservative free 1 2013 Unknown, Provider 140 (MVX) complet ed Influenza , seasonal, injectabl e, preservat bud free DoD influenza, seasonal, injectable 2012 141 complet ed influenza , seasonal, injectabl e 04/29/13 Given Ambulat ory Pharmac y Influenza, seasonal, injectable 1 2012 Unknown, Provider 141 (MVX) complet ed Influenza , seasonal, injectabl e DoD influenza, seasonal, injectable-pf 2011 zzLef t Arm [id number] CSL Behring complet ed influenza , seasonal, injectabl e-pf 05/04/12 Given Ambulat ory Pharmac y tetanus, diphtheria, acellular pertu is 2011 zManda ht Arm [id number] 115 sanofi pasteur complet ed tetanus, diphtheri a, acellular pertussis 05/04/12 Given Ambulat ory Pharmac y tetanus toxoid, reduced diphtheria toxoid, and acellular pertu is vaccine, adsorbed 4 2011 Unknown, Provider [id number] 115 Sanofi Pasteur (PMC) complet ed tetanus toxoid, reduced diphtheri a toxoid, and acellular pertussis vaccine, adsorbed DoD Influenza, seasonal, injectable, preservative free 11 2011 Unknown, Provider [id number] [facility] [employer] (CSL) complet ed Influenza , seasonal, injectabl e, preservat bud free DoD tetanus, diphtheria, acellular pertu is 2011 zzLef t Arm [id number] 115 sanofi pasteur complet ed tetanus, diphtheri a, acellular pertussis 03/29/12 Given Ambulat ory Pharmac y tetanus toxoid, reduced diphtheria toxoid, and acellular pertu is vaccine, adsorbed 1 2011 Unknown, Provider [id number] 115 Sanofi Pasteur ([facility]) complet ed tetanus toxoid, reduced diphtheri a toxoid, and acellular pertussis vaccine, adsorbed [facility] influenza virus vaccine, live 2010 [id number] 111 Medimmune Inc comple t ed influenza virus vaccine, live 05/27/11 Given Ambulat ory Pharmac y influenza virus vaccine, live, attenuated, for intranasal use 10 2010 Unknown, Provider [id number] 111 MedImmune, Inc. (MED) complet ed influenza virus vaccine, live, attenuate d, for intranasa l use [facility] influenza virus vaccine, live 2009 [id number] 111 Medimmune Inc [facility] t ed influenza virus vaccine, live 05/28/10 Given Ambulat ory Pharmac y influenza virus vaccine, live, attenuated, for intranasal use 2009 Unknown, Provider [id number] 111 MedImmune, Inc. (MED) complet ed influenza virus vaccine, live, attenuate d, for intranasa l use DoD typhoid Vi capsular polysaccharid e vac 2009 zzLef t Arm [id number] 101 sanofi pasteur complet ed typhoid Vi capsular polysacch aride vac 09/01/09 Given Ambulat ory Pharmac y typhoid Vi capsular polysaccharid e vaccine 1 2009 Unknown, Provider [id number] 101 Sanofi Pasteur ([facility]) complet ed typhoid Vi capsular polysacch aride vaccine [facility] Novel influenza-H1N 1-09, injectable 2009 zzLef t Arm [id number] 127 Novartis Pharmaceut[employer] ls complet ed Novel influenza -[id number], injectabl e 07/31/09 Given Ambulat ory Pharmac y Novel influenza-H1N 1-09, injectable 1 2009 Unknown, Provider [id number] 127 Novartis Pharmaceutica l [place]. (NOV) complet ed Novel influenza -[id number], injectabl e DoD influenza virus vaccine,split 2008 [facility] Arm [id number] 15 sanofi pasteur complet ed influenza virus vaccine,s plit 05/26/09 Given Ambulat ory Pharmac y influenza virus vaccine, split virus (incl. purified surface antigen)-reti red CODE 1 2008 Unknown, Provider [id number] 15 Sanofi Pasteur ([facility]) complet ed influenza virus vaccine, split virus (incl. purified surface antigen)- retired CODE DoD influenza virus vaccine,split 2007 [facility] Arm [id number] 15 GlaxoSmithKli ne complet ed influenza virus vaccine,s plit 05/25/08 Given Ambulat ory Pharmac y influenza virus vaccine, split virus (incl. purified surface antigen)-reti red CODE 1 2007 Unknown, Provider [id number] 15 [facility] (SKB) complet ed influenza virus vaccine, split virus (incl. purified surface antigen)- retired CODE DoD HepB, Adult 2007 [facility] Arm [id number] Merck & Company Inc complet ed HepB, Adult 07/29/07 Given Ambulat ory Pharmac y typhoid Vi capsular polysaccharid e vac 2007 [facility] Arm [id number] sanofi pasteur complet ed typhoid Vi capsular polysacch aride vac 07/29/07 Given Ambulat ory Pharmac y hepatitis B vaccine, adult dosage 3 2007 Unknown, Provider [id number] Merck (MSD) complet ed hepatitis B vaccine, adult dosage DoD typhoid Vi capsular polysaccharid e vaccine 1 2007 Unknown, Provider [id number] Sanofi Pasteur ([facility]) complet ed typhoid Vi capsular polysacch aride vaccine DoD influenza virus vaccine,split 2006 [facility] Arm [id number] 15 GlaxoSmithKli ne complet ed influenza virus vaccine,s plit 11/15/07 Given Ambulat ory Pharmac y influenza virus vaccine, split virus (incl. purified surface antigen)-reti red CODE 1 2006 Unknown, Provider [id number] 15 [facility] (SKB) complet ed influenza virus vaccine, split virus (incl. purified surface antigen)- retired CODE DoD influenza virus vaccine,split 2005 zzLef t Arm [id number] 15 Unknown complet ed influenza virus vaccine,s plit 06/23/06 Given Ambulat ory Pharmac y influenza virus vaccine, split virus (incl. purified surface antigen)-reti red CODE 1 2005 Unknown, Provider [id number] Other (OTH) complet ed influenza virus vaccine, split virus (incl. purified surface antigen)- retired CODE [facility] typhoid vaccine, inactivated 2005 zzLef t Arm [id number] sanofi pasteur complet ed typhoid vaccine, inactivat ed 09/17/05 Given Ambulat ory Pharmac y typhoid vaccine, parenteral, other than acetone-kille d, dried 1 2005 Unknown, Provider [id number] Sanofi Pasteur ([facility]) complet ed typhoid vaccine, parentera l, other than acetone-k illed, dried DoD influenza virus vaccine,split 2004 zzLef t Arm [id number] 15 sanofi pasteur complet ed influenza virus vaccine,s plit 06/25/05 Given Ambulat ory Pharmac y influenza virus vaccine, split virus (incl. purified surface antigen)-reti red CODE 1 2004 Unknown, Provider [id number] 15 Sanofi Pasteur ([facility]) complet ed influenza virus vaccine, split virus (incl. purified surface antigen)- retired CODE [facility] influenza virus vaccine, live 2004 [id number] 111 Medimmune Inc comple t ed influenza virus vaccine, live 07/29/04 Given Ambulat ory Pharmac y influenza virus vaccine, live, attenuated, for intranasal use 1 2004 Unknown, Provider [id number] 111 [employer] (MED) complet ed influenza virus vaccine, live, attenuate d, for intranasa l use [facility] influenza virus vaccine, whole virus 2003 zzLef t Arm [id number] 16 sanofi pasteur complet ed influenza virus vaccine, whole virus 09/20/03 Given Ambulat ory Pharmac y tuberculin purified protein derivative 2003 zzLef t Arm [id number] 96 sanofi pasteur complet ed Patient Tolerance : Negative Ambulat ory Pharmac y typhoid vaccine, inactivated 2003 zzLef t Arm [id number] 101 sanofi pasteur complet ed typhoid vaccine, inactivat ed 09/20/03 Given Ambulat ory Pharmac y tetanus-dipht h toxoids (Td) adult/adol 2003 zzLef t Arm [id number] 09 sanofi pasteur complet ed tetanus-d iphth toxoids (Td) adult/ado l 09/20/03 Given Ambulat ory Pharmac y tetanus and diphtheria toxoids, adsorbed, preservative free, for adult use (2 Lf of tetanus toxoid and 2 Lf of diphtheria toxoid) 1 2003 Unknown, Provider [id number] 09 Sanofi Pasteur ([facility]) complet ed tetanus and diphtheri a toxoids, adsorbed, preservat bud free, for adult use (2 Lf of tetanus toxoid and 2 Lf of diphtheri a toxoid) [facility] influenza virus vaccine, whole virus 1 2003 Unknown, Provider [id number] Sanofi Pasteur ([facility]) complet ed influenza virus vaccine, whole virus DoD typhoid vaccine, parenteral, other than acetone-kille d, dried 1 2003 Unknown, Provider [id number] 41 Sanofi Pasteur ([facility]) complet ed typhoid vaccine, parentera l, other than acetone-k illed, dried [facility] tuberculin skin test; purified protein derivative solution, intradermal 1 2003 Unknown, Provider [id number] 96 Sanofi Pasteur ([facility]) complet ed tuberculi n skin test; purified protein derivativ e solution, intraderm al DoD influenza virus vaccine,split [id number] [employer] complet ed influenza virus vaccine,s plit 04/11/99 Given Ambulat ory Pharmac y influenza virus vaccine, split virus (incl. purified surface antigen)-reti red CODE 1 1998 Unknown, Provider [id number] 15 Lyric (Inactive) ([place]) complet ed influenza virus vaccine, split virus (incl. purified surface antigen)- retired CODE DoD hepatitis A adult vaccine 1996 52 complet ed hepatitis A adult vaccine 12/28/96 Given Ambulat ory Pharmac y HepB, Adult 1996 zzLef t Arm 43 complet ed HepB, Adult 12/28/96 Given Ambulat ory Pharmac y hepatitis B vaccine, adult dosage 2 1996 Unknown, Provider 43 Transcribed (TRS) complet ed hepatitis B vaccine, adult dosage DoD hepatitis A vaccine, adult dosage 2 1996 Unknown, Provider 52 Transcribed (TRS) complet ed hepatitis A vaccine, adult dosage DoD measles/mumps /rubella virus vaccine 1994 03 complet ed measles/m umps/rube lla virus vaccine 06/19/95 Given Ambulat ory Pharmac y hepatitis A adult vaccine 1994 52 complet ed hepatitis A adult vaccine 06/19/95 Given Ambulat ory Pharmac y measles, mumps and rubella virus vaccine 1 1994 Unknown, Provider 03 Transcribed (TRS) complet ed measles, mumps and rubella virus vaccine DoD hepatitis A vaccine, adult dosage 1 1994 Unknown, Provider 52 Transcribed (TRS) complet ed hepatitis A vaccine, adult dosage DoD HepB, Adult 1993 Dimitris joseph Arm 43 complet ed HepB, Adult 02/16/94 Given Ambulat ory Pharmac y hepatitis B vaccine, adult dosage 1 1993 Unknown, Provider 43 Transcribed (TRS) complet ed hepatitis B vaccine, adult dosage DoD cholera vaccine unspecified formula 1993 26 complet ed cholera vaccine unspecifi ed formula 02/13/94 Given Ambulat ory Pharmac y cholera vaccine, unspecified formulation 1 1993 Unknown, Provider 26 Transcribed (TRS) complet ed cholera vaccine, unspecifi ed formulati on DoD immune globulin, unspecified formulation 1 1992 Unknown, Provider 14 Transcribed (TRS) complet ed immune globulin, unspecifi ed formulati on DoD yellow fever vaccine 1992 37 complet ed yellow fever vaccine 08/02/92 Given Ambulat ory Pharmac y yellow fever vaccine 1992 Unknown, Provider 37 Transcribed (TRS) complet ed yellow fever vaccine DoD measles virus vaccine 1991 05 complet ed measles virus vaccine 04/05/92 Given Ambulat ory Pharmac y poliovirus vaccine, live, oral 1991 02 complet ed polioviru s vaccine, live, oral 04/05/92 Given Ambulat ory Pharmac y trivalent poliovirus vaccine, live, oral 1 1991 Unknown, Provider 02 Transcribed (TRS) complet ed trivalent polioviru s vaccine, live, oral DoD measles virus vaccine 1 1991 Unknown, Provider 05 Transcribed (TRS) complet ed measles virus vaccine DoD meningococcal polysaccharid e (MPSV4) 1991 32 complet ed meningoco ccal polysacch aride (MPSV4) 03/23/92 Given Ambulat ory Pharmac y tetanus-dipht h toxoids (Td) adult/adol 1991 zzLef t Arm 09 complet ed tetanus-d iphth toxoids (Td) adult/ado l 03/23/92 Given Ambulat ory Pharmac y tetanus and diphtheria toxoids, adsorbed, preservative free, for adult use (2 Lf of tetanus toxoid and 2 Lf of diphtheria toxoid) 1 1991 Unknown, Provider 09 Transcribed (TRS) complet ed tetanus and diphtheri a toxoids, adsorbed, preservat bud free, for adult use (2 Lf of tetanus toxoid and 2 Lf of diphtheri a toxoid) [facility] meningococcal polysaccharid e vaccine (MPSV4) 1 1991 Unknown, Provider 32 Transcribed (TRS) complet ed meningoco ccal polysacch aride vaccine (MPSV4) [facility] adenovirus vaccine, type 4, live, oral 1991 54 complet ed adenoviru s vaccine, type 4, live, oral 03/21/92 Given Ambulat ory Pharmac y adenovirus vaccine, type 7, live, oral 1991 55 complet ed adenoviru s vaccine, type 7, live, oral 03/21/92 Given Ambulat ory Pharmac y adenovirus vaccine, type 4, live, oral 1 1991 Unknown, Provider 54 Transcribed (TRS) complet ed adenoviru s vaccine, type 4, live, oral DoD adenovirus vaccine, type 7, live, oral 1991 Unknown, Provider 55 Transcribed (TRS) complet ed adenoviru s vaccine, type 7, live, oral [facility] Vital Signs Combined list of inpatient and outpatient Vital Signs from Department of Defense and Veterans Affairs, ranging from 12 months to all on record, depending upon the facility. Vital Sign Value Date Comments Source Peripheral Pulse Rate 60 bpm 06/05/2023 16:15:[address] [place] [address] Systolic Blood Pressure 107 mm[Hg] 06/05/2023 16:15:[address] [place] [address] Diastolic Blood Pressure 63 mm[Hg] 06/05/2023 16:15:[address] [place] [address] Encounters Combined list of: 1) Encounters from [facility] facilities going backup to the last 18 months, not all [place] inpatient encounters are included; 2) Encounters from the [facility] facilities going backup to 280 months. Location Location Details Encounter Type Encounter Number Reason For Visit Attending Provider ADM Date DC Date Status Disposition Source Ambulator y Pharmacy Lifetime Pharmacy [id number] 12/09 Ambulat ory Pharmac y Procedures Combined list of: 1) Procedures from [facility] facilities going back up to thelast 18 months, not all [place] non-surgical procedures are included; 2) All procedures from the [facility] facilities. Procedure Procedure Type Code Date Perfomer Comments Sourc e No data available for this section Ambulatory P harmacy Social History Combined list of available smoking, tobacco, and other social history from [facility] of [facility] and [facility] facilities. Social History Type Response Date Comment Sourc e Sexual Orientation Ambula tory Pharmacy Gender identity Ambulator y Pharmacy Sex Representation Male (finding) Un known Organization This section is an empty soc ial history section. DoD Assessment and Plan Combined list of future care activities from Department of Defense and Veterans Affairs facilities (e.g., assessment and plan notes, appointments, orders, and referrals). Additional future care activities may be listed in the Plan of Care section. Result Assessment and Plan Date Source Assessment and Plan Extracted from:Title : CAL ASSESSMENT Author: AKASH TIJERINA Date: 06/06/23 Encounter for other specified special examinations 01/29/[address] [place] [address] Functional Status Combined list of recent functional and cognitive assessments recorded at [facility] [place] Functional [place] Measurement (FIM) Scale: 1 = Total Assistance (Subject = 0% +), 2 = Maximal Assistance (Subject = 25% +), 3 = Moderate Assistance (Subject = 50% +), 4 = Minimal Assistance (Subject = 75% +), 5 = Supervision, 6 = Modified [place] (Device), 7 = Complete [place] (Timely, Safely). Assessment Date/Time Source Assessment Type Assessment Skill Assessment Score Assessment Details No data available for this section
[2025-01-29 10:34] LABS: MANUAL DIFF FLAG NO
[2025-01-29 10:35] LABS: Appearance Urine Clear; Glucose Urine UA Negative (Negative); PH 7.0 (5.0-9.0); Specific Gravity - Urine 1.025 (1.005-1.025)
[2025-01-29 10:45] LABS: Hematocrit 44.2 % (42.0-52.0); Hemoglobin 15.2 g/dl (14.0-18.0); Imm Gran Abs Auto 0.03 X10*3/uL (0.00-0.03); Imm Gran Pct Auto 0.6 % (0.0-0.4); Lymphocytes Absolute Auto 1.4 X10*3/uL (1.2-4.9); Mean Corpuscular HGB Conc 34.4 g/dl (31.0-36.0); Mean Corpuscular Hemoglobin 32.0 pg (27.0-33.0); Mean Corpuscular Volume 93.1 fL (80.0-98.0); NRBC Abs Auto 0.000 X10*3/uL (0.0-0.012); NRBC Pct Auto 0.0 /100WBC (0.0-0.2); Platelet Count 200 X10*3/uL (160-400); Red Blood Count 4.75 X10*6/uL (4.60-5.80); White Blood Count 4.9 X10*3/uL (4.8-10.8)
[2025-01-29 11:39] LABS: Alanine Aminotransferase 20 U/L (0-40); Albumin Level 4.3 g/dL (3.5-5.0); Alkaline Phosphatase 70 U/L (39-117); Anion Gap 12 (12-20); Aspartate Amino Transferase 34 U/L (5-37); Blood Urea Nitrogen 18 mg/dL (9-16); Calcium 8.9 mg/dL (8.4-10.2); Carbon Dioxide 26 mmol/L (22-29); Chloride 107 mmol/L (96-108); Cholesterol 179 mg/dL (<200); Estimated Glomerular Filt Rate > 60; HDL Cholesterol 35 mg/dL (>40); Potassium 4.5 mmol/L (3.3-5.1); Sodium 140 mmol/L (135-145); Total Protein 6.6 g/dL (6.5-8.0); Triglycerides 99 mg/dL (<150)
[2025-01-30 17:38] LABS: A. Phagocytphilium DNA,RT-PCR NOT DETECTED (NOT DETECTED); Babesia Microti DNA, RT-PCR NOT DETECTED (NOT DETECTED); Borrelia Miyamotoi,DNA RT-PCR NOT DETECTED (NOT DETECTED); E.Chaffeensis DNA RT-PCR NOT DETECTED (NOT DETECTED); Lyme(Borrelia ssp)DNA RT-PCR NOT DETECTED (NOT DETECTED)
[2025-02-01 21:38] LABS: Lyme Blot 1.15 index
[2025-02-03 14:36] LABS: Lyme Abs Screen POSITIVE
[2025-02-05 20:38] LABS: 39KD (IgG) Band REACTIVE; 41KD (IgG) Band REACTIVE; Lyme IgG Blot Interp NEGATIVE (NEGATIVE); Lyme IgM Blot Interp NEGATIVE (NEGATIVE)
== END 2025-01-29 07:04 | disposition home or self-care (01) ==
LOC: HO.HMGCLDS 07:03
PROVIDERS: PCP Nurse Practitioner Family; Visit Provider Nurse Practitioner Family
DX: Z00.00 Encounter for general adult medical examination without abnormal findings (principal); Z12.5 Encounter for screening for malignant neoplasm of prostate; T14.8XXA Other injury of unspecified body region, initial encounter
CPT/HCPCS: 36415; 80053; 80061; 81003; 84153; 84443; 85025; 86617; 86618; 87468; 87469; 87478; 87484; 87798